=== PATIENT | female | born 1990 | race Caucasian/White ===

== ENCOUNTER 2021-07-29 12:24 | Inpatient (IN) ==
[2021-07-29 08:51] LABS: Basophils # 0.1 K/mcL (0.0-0.2); Basophils % 0.9 %; Eosinophils # 0.1 K/mcL (0.0-0.6); Eosinophils % 0.8 %; Hematocrit 43.1 % (35.3-44.9); Immature Granulocytes % 2.5 % (0-4); Lymphocytes # 3.3 K/mcL (0.6-4.6); Lymphocytes % 27.4 %; Mean Corpuscular HGB Conc 32.5 g/dL (31.6-35.5); Mean Corpuscular Hemoglobin 31.3 pg (28.0-33.3); Mean Corpuscular Volume 96.2 fL (83.0-100.0); Mean Platelet Volume 11.1 fL (9.4-12.4); Monocytes # 0.8 K/mcL (0.0-1.3); Monocytes % 6.6 %; Neutrophils # 7.4 K/mcL (1.6-8.9); Platelet Count 242 K/mcL (140-400); Red Blood Count 4.48 M/mcL (3.82-4.97); Red Cell Distribution Width 13.7 % (11.5-14.5); Segmented Neutrophils % 61.8 %; White Blood Count 11.9 K/mcL (4.3-11.1)
[2021-07-29 09:36] LABS: Influenza A PCR Negative (Negative); Influenza B PCR Negative (Negative); Resp. Syncytial Virus PCR Negative (Negative)
[2021-07-29 10:11] LABS: Amphetamine Screen,Urine Negative ng/mL (Cutoff=1000); Barbiturate Screen,Urine Negative ng/mL (Cutoff=200); Benzodiazepines Screen,Urine Negative ng/mL (Cutoff=200); Cannabinoid Screen,Urine Negative ng/mL (Cutoff = 50); Cocaine Screen,Urine Negative ng/mL (Cutoff= 300); Opiate Screen,Urine Negative ng/mL (Cutoff=300); Phencyclidine Screen,Urine Negative ng/mL (Cutoff=25)
[2021-07-29 10:30] LABS: SARS-CoV-2 by PCR (In House) Negative (Negative)
[~2021-07-29 12:24] MED LIST: *HR* FentaNYL (PF) 100 MCG/2 ML VIAL EP ONE; Bupivacaine-MPF 0.25% 10 ML VIAL ONE; EPHEDrine 50 MG/ML VIAL IVP PRN; Epidural Premix (fent/bupiv) 110 ML EP ONE; Epidural Premix (fent/bupiv) 110 ML EP SCH; Famotidine 20 MG/2 ML VIAL IVP PRN; Lidocaine 1% 20 ML MDV INFILT PRN; Metoclopramide 10 MG/2 ML VIAL IVP PRN; Naloxone 0.4 MG/ML INJ IVP PRN; Ondansetron 4 MG/2 ML VIAL IVP PRN; Oxytocin 20 units/ LR 1000 mL 20 UNIT/1,000 ML BAG IVC ONE; Ringers Solution, Lactated 1,000 ML IVC SCH; Ropivacaine/PF 0.2% 20 ML VIAL EP ONE
[2021-07-29] MEDS ORDERED: Oxytocin 20 units/ LR 1000 mL 20 UNIT/1,000 ML BAG IVC SCH (13:38)
[2021-07-29] MEDS ORDERED: Lanolin 7 G OINT...G. TP PRN (13:38)
[2021-07-29] MEDS ORDERED: Oxytocin 20 units/ LR 1000 mL 20 UNIT/1,000 ML BAG IVC ONE (13:38)
[2021-07-29] MEDS ORDERED: Ondansetron ODT 4 MG TAB.RAPDIS SL PRN (13:38)
[2021-07-29] MEDS ORDERED: Benzocaine/Menthol 56 GM AEROSOL SPRAY TP PRN (13:38)
[2021-07-29] MEDS ORDERED: Acetaminophen 325 MG TABLET PO SCH (13:38)
[2021-07-29] MEDS ORDERED: Ibuprofen 600 MG TABLET PO SCH (14:03)
[2021-07-29 15:52] VITALS: BP 133/77; PULSE 84; TEMP 98.3; O2SAT 97
[2021-07-30] MEDS ORDERED: Prenatal Vit/FA 1 EACH TABLET PO SCH (09:00)
== END 2021-07-29 19:03 | disposition home or self-care (01) | DRG 807 ==
LOC: 1NENULAB → 1NENUOBS 13:17
PROVIDERS: ADMIT Advanced Practice Midwife; ATTEND Advanced Practice Midwife